=== PATIENT | male | born 1990 | race Caucasian/White ===

== ENCOUNTER 2025-05-16 11:20 | Outpatient (CLI) | payer MEDICAID ==
--- NOTE | 2025-05-16 13:24 | RADIOLOGY REPORT ---
CLINICAL HISTORY: Right hand pain. Pain and hypersensitivity of the right middle finger. TECHNIQUE: Multi sequence multi planar MRI images of the right hand were obtained without IV contras t. COMPARISON: None FINDINGS: Osseous structures are intact and appear otherwise unremarkable. No acute fracture, focal marrow contusion, or significant arthritic changes are seen. There is a small focal area of T2 hyperi ntense signal in the nail bed of the distal aspect of the 3rd digit measuring up to 4.5 x 2.6 mm (ser ies 5, image 30), not well-visualized on the T1 weighted images. The structure abuts the dorsal yesenia x of the distal phalanx of the 3rd digit causing mild, smoothly marginated saucerization of the yesenia x, possible small glomangioma/glomus tumor. There is trace fluid along the volar aspect of the 3rd di git just proximal to the level of the distal interphalangeal joint, along the superficial fibers of t he distal flexor tendon, possible mild peritendinitis. More proximally along the volar aspect of the 3rd digit flexor tendon near the level of the midportion of the proximal phalanx, there are small T2 hyperintense ovoid structures measuring 2 mm and 3 mm, respectively along the volar radial aspects of the flexor tendon, may be focally prominent veins or possibly small ganglion cysts. There is no evid ence of tendon tear or ligament tear. IMPRESSION: 1. Small focal area of T2 hyperintense signal in the nail bed of the 3rd digit, possible small gloman gioma. Correlate with clinical findings. If clinically indicated, postcontrast imaging may be helpf ul to further characterize. 2. Trace fluid along the volar aspect of the 3rd digit flexor tendon near the level of the distal int erphalangeal joint, possible mild peritendinitis. 3. Very small ovoid structures along the volar radial aspect of the 3rd digit flexor tendon at the le dang of the midportion of the proximal phalanx, may be due to focally prominent veins or small ganglio n cysts.
== END 2025-05-16 23:59 | disposition home or self-care (01) ==
LOC: MRI02 11:20
PROVIDERS: ATTEND Physician Assistant Surgical
DX: M79.641 Pain in right hand (principal)
CPT/HCPCS: 73218